=== PATIENT | male | born 1995 | race Caucasian/White ===

== ENCOUNTER → 2017-09-17 | Outpatient (REF) | payer OTHER | LOC: M LAB REF 09:37 | DX: J02.0 Streptococcal pharyngitis (principal) ==

== ENCOUNTER → 2021-08-11 | Outpatient (RCR) | payer OTHER | LOC: M PT 07-27 06:44 | PROVIDERS: ATTEND Physician Assistant Surgical | DX: M25.552 Pain in left hip (principal); S53.42 Ulnohumeral (joint) sprain; X58.XXXD Exposure to other specified factors, subsequent encounter ==

== ENCOUNTER 2021-08-28 07:00 | Outpatient (RCR) | payer OTHER | END 2021-09-11 | LOC: M PT 07:00 | PROVIDERS: ATTEND Physician Assistant Surgical | DX: M25.522 Pain in left elbow (principal); S53.442D Ulnar collateral ligament sprain of left elbow, subsequent encounter ==